=== PATIENT | female | born 1995 | race Caucasian/White ===

== ENCOUNTER 2018-04-10 09:01 | Day surgery (SDC) | payer BC ==
[~2018-04-10 09:01] MED LIST: BUPIVAC MPF-EPI 0.5%-1:200000 30 ML VIAL. ONE; HYDROmorphone 2 MG/ML VIAL IV PRN; IOHEXOL 300 MG/ML 100ML VIAL. ONE; IV RINGERS,LACTATED 1000ML 1,000 ML IV SCH; LIDOCAINE 1% PF 2 ML VIAL. ID PRN; MORPHINE SULFATE 4 MG/ML VIAL. IV PRN; ONDANSETRON PF 4 MG/2 ML VIAL. IV PRN; SURGICEL HEMOSTAT 4X8 EACH. ONE; fentaNYL PF VIAL 100 MCG/2 ML VIAL IV PRN
[2018-04-10] MEDS ORDERED: METF500T16 PO (09:23)
[2018-04-10] MEDS ORDERED: ceFAZolin SODIUM 3 GM in IV DEXTROSE 5% 100ML 100 ML IV PRN (09:24)
[2018-04-10] MEDS ORDERED: SUMA100T4 PO (09:24)
[2018-04-10] MEDS ORDERED: CHOL10003 PO (09:25)
[2018-04-10 09:26] LABS: U PREG PATIENT NEGATIVE (NEG)
[2018-04-10] MEDS ORDERED: ALBU2.5V8 IH (09:26)
[2018-04-10] MEDS ORDERED: MIDAZOLAM HCL/PF 2 MG/2 ML VIAL. ONE (09:58)
[2018-04-10] MEDS ORDERED: fentaNYL PF VIAL 100 MCG/2 ML VIAL ONE ×2 (09:58→11:39)
[2018-04-10] MEDS ORDERED: PROPOFOL 20 ML IV ONE (09:59)
[2018-04-10] MEDS ORDERED: LIDOCAINE 2% PF 5 ML VIAL. ONE (09:59)
[2018-04-10] MEDS ORDERED: ONDANSETRON PF 4 MG/2 ML VIAL. ONE (09:59)
[2018-04-10] MEDS ORDERED: ROCURONIUM 50 MG/5 ML VIAL. ONE ×2 (09:59→11:12)
[2018-04-10] MEDS ORDERED: DEXAMETHASONE SOD PHOS 20 MG/5 ML VIAL. ONE (09:59)
[2018-04-10] MEDS ORDERED: GLYCOPYRROLATE 1 MG/5 ML VIAL. ONE (10:47)
[2018-04-10] MEDS ORDERED: NEOSTIGMINE 10 MG/10 ML VIAL. ONE (10:47)
[2018-04-10] MEDS ORDERED: KETOROLAC 30 MG/ML INJ FOR OR. INJ ONE (11:13)
[2018-04-10] MEDS ORDERED: SEVOFLURANE 61 TO 120 MINUTES. IH ONE (11:28)
--- NOTE | 2018-04-10 11:47 | RAD ---
Cholangiogram fluoroscopy 04/10/2018 10:30 AM INDICATION: Cholangiogram in the OR COMPARISON: None available TECHNIQUE: 3 fluoroscopic spot views are provided. Fluoroscopy time: 0.9 minutes FINDINGS: Fluoroscopy is provided for intraoperative use. Contrast opacification of the cystic duct, intrahepatic biliary tree and common bile duct is noted. Contrast opacifies the duodenum. No filling defects are identified. IMPRESSION: 1. Intraoperative cholangiogram performed utilizing fluoroscopy. 2. Please refer to the separate operative report for further details. Electronically signed by: Priya Ocampo MD (04/10/2018 11:43 AM) [facility]
--- NOTE | 2018-04-10 11:48 | PDOC4 ---
Operative Note Operative Note Operative Note: Preoperative Diagnosis: Symptomatic cholelithiasis Postoperative Diagnosis: Same Procedure: Laparoscopic cholecystectomy with intraoperative cholangiogram Surgeons: Robi Anesthesia: Gen. Estimated Blood Loss: 10 mL Specimen: Gallbladder to pathology Drains: None Complications: None Indications: The patient is a 22-year-old female who is been experiencing recurrent upper abdominal pain consistent with biliary colic. Surgical treatment was offered by means of a laparoscopic cholecystectomy. The risks of surgery were discussed which include bleeding, infection, bile duct injury, bile leak, pain, the potential for additional surgeries or procedures. The patient understands and would like to proceed. Description: The patient was taken to the operating room and laid supine on the operating table. General anesthesia was performed. The abdomen was prepped with ChloraPrep and draped in a standard surgical fashion. A small infraumbilical incision was made with a scalpel. The Veress needle was then inserted and a pneumoperitoneum was then created. A 5 mm trocar was then inserted and the laparoscope was introduced. In the upper midabdomen a 5 mm trocar was inserted and in the right upper quadrant two 2.3 mm mini lap graspers were inserted. The gallbladder was retracted cephalad. The cystic duct was dissected free from surrounding tissues. One clip was placed on the duct near the gallbladder junction. An opening was made in the duct and a cholangiocatheter placed within and secured with a clip. Using contrast dye and fluoroscopy an intraoperative cholangiogram was performed that appeared unremarkable. The clip and catheter were then withdrawn. Three clips were placed on the cystic duct and it was divided. The cystic artery was then identified, dissected free, doubly clipped and divided as well. The gallbladder was then mobilized away from the liver with cautery. The umbilical 5 millimeter trocar was exchanged for an 11 millimeter trocar. The gallbladder was then placed in an endoscopic bag and extracted at the umbilical trocar site. All blood and irrigation fluid was suctioned and hemostasis was good. The remaining ports were removed and the pneumoperitoneum was relieved. The skin incisions were closed using 4-0 Monocryl suture. Steri-Strips and dressings were then applied. The patient tolerated the procedure well and was sent to the recovery room in stable condition. At the end of the case all counts were correct. TIFFANIE RICHARDSON MD Apr 10, 2018 11:48
--- NOTE | 2018-04-10 11:51 | DISCH ---
DISCHARGE INSTRUCTIONS Condition on Discharge Condition on Discharge: Stable Activity After Discharge Activity Instructions for Disc: Other, see below (no lifting over 20 lbs X 2 weeks) Diet after Discharge Diet after Discharge: Regular Wound Incision Care Wound/Incision Care: Other, see below (may remove bandaids and shower tomorrow) Follow-Up Follow up with: Dr Richardson in 2 weeks in office, call for appt [phone] TIFFANIE RICHARDSON MD Apr 10, 2018 11:50
[2018-04-10] MEDS ORDERED: ONDA4TAB7 PO (12:12)
[2018-04-10] MEDS ORDERED: OXYC1TAB15 PO ×2 (12:13→12:15)
[2018-04-10] MEDS: fentaNYL PF VIAL 100 MCG/2 ML VIAL IV PRN ×2 (12:20→12:39)
[2018-04-10] MEDS: PROCHLORPERAZINE 10 MG/2 ML VIAL. IV PRN ×2 (12:20→12:41)
[2018-04-10] MEDS ORDERED: oxyCODONE/APAP 5/325 1 TAB TABLET PO ONE ×2 (12:30)
[2018-04-10 13:00] VITALS: BP 102/56
--- NOTE | 2018-04-14 08:08 | PATHOLOGY ---
[facility] Accession Number: [id number] . 01 Material submitted: . GALLBLADDER . 01 Clinical history: . None provided. . 02 Diagnosis: Gallbladder, laparoscopic cholecystectomy: - Cholelithiasis. - Cholesterolosis. - Chronic cholecystitis. (JPM:finesse; 04/11/2018) QMS/04/11/2018 . 02 Comment: There is no evidence of malignancy. . 02 Electronically signed: . Mando Meadows MD, Pathologist NPI- [id number] . 01 Gross description: . Received in formalin labeled "Miladis Wiley, gallbladder" is an intact cholecystectomy specimen measuring 6.6 x 2.8 x 2.0 cm. The serosa is pink-shultz and smooth. The specimen is opened to reveal dark green velvety mucosa with scant yellow stippling. The average wall thickness measures 0.2 cm and no polyps or masses are identified. Multiple yellow-shultz bosselated calculi are identified which measure 2.5 x 1.6 x 0.6 cm in aggregate and ranging from 0.5-0.7 cm in greatest dimension. [employer] sections of the fundus, body, and the cystic duct margin are submitted in cassette A1. ([facility]; 04/10/2018) SYC/SYC . 02 Pathologist provided ICD-10: K80.10, K82.4 . 02 CPT . 935560 Specimen Comment: A courtesy copy of this report has been sent to Specimen Comment: [phone], . Specimen Comment: Report sent to / DR ZAVALA Specimen Comment: A duplicate report has been generated due to demographic updates. Performed at: [address], [place], [place] [id number] MD Anuel Knight MD Phone: [phone] Performed at: [address] [id number] MD Mando Meadows MD Phone: [phone]
== END 2018-04-10 13:56 | disposition home or self-care (01) ==
LOC: SURG 09:01
PROVIDERS: ATTEND Surgery
DX: K80.10 Calculus of gallbladder with chronic cholecystitis without obstruction (principal); G43.909 Migraine, unspecified, not intractable, without status migrainosus; E28.2 Polycystic ovarian syndrome; J45.20 Mild intermittent asthma, uncomplicated; Z82.49 Family history of ischemic heart disease and other diseases of the circulatory system; Z79.84 Long term (current) use of oral hypoglycemic drugs; Z79.899 Other long term (current) drug therapy
CPT/HCPCS: 47563; 74300; 81025; 82962; A7015; J0780; J1100; J1885; J2001; J2250; J2405; J2704; J2710; J3010; J3490; J7030; J7120; Q9967; 88304